=== PATIENT | male | born 1990 | race Caucasian/White ===

== ENCOUNTER 2020-01-29 04:45 | Emergency (ER) | payer OTHER ==
[~2020-01-29] VITALS: Ht 165.1 cm; Wt 90.7 kg
--- NOTE | 2020-01-29 04:45 | NUR ---
BIBA TO ER BED 5
--- NOTE | 2020-01-29 04:50 | NUR ---
Patient being evaluated by physician at bedside.
[2020-01-29 04:55] VITALS: BP 119/68
[2020-01-29] MEDS ORDERED: LORazepam 2 MG/ML VIAL IVP ONE (04:55)
[2020-01-29] MEDS ORDERED: NACL 0.9% 1,000 ML IV ONE ×4 (04:55→10:40)
--- NOTE | 2020-01-29 04:55 | NUR ---
29 Y/O MALE BIBA AFTER SEIZURE. PER EMS PT'S FAMILY CALLED ABOUT PT HAVING 1 MINUTE SEIZURE AT 0400 AT HOME. AFTER SEIZURE PT WAS NOTED TO BE RUNNING AROUND STREET WHEN EMS FOUND HIM. PT ARRIVED AND PRESENTS WITH GARBLED SPEECH, GCS OF 10. PERRL OF 3 MM SLUGLISH BILATERAL. RESPIRATIONS EVEN AND UNLABORED, O2 SAT AT 96% AT RA. PER EMS BS WAS 134 PRIOR TO ARRIVAL. PT PLACED ON SEIZURE PRECAUTIONS, PADDED SIDE RAILS IN PLACE, SIDE RAILS UP X 2. BED LOCKED AND IN LOWEST POSITION. PT ON PEOPLESOFT PROGRAMMER. MEDHX: SEIZURES ALLERGIES: UNABLE TO ANSWER -PER EMS NKA
[2020-01-29] MEDS ORDERED: LORazepam 2 MG/ML VIAL IM ONE (05:05)
--- NOTE | 2020-01-29 05:10 | NUR ---
PT HAD SIEZURE LASTING 30 [address]DS[address] SE[address] IN PLACE. SUCTION SET UP AT BEDSIDE. PT PLACED ON LEFT SIDE. PT ON CARIDAC MONTIOR. O2 RUNNING @ 2L NS. O2SAT@ 98% ERMD MADE AWARE. IV PULLED OUT. ERMD GAVE ORDER FOR STAT ATIVAN 2MG IM.
--- NOTE | 2020-01-29 05:16 | NUR ---
IV PLACED IN R WRIST 20G.
--- NOTE | 2020-01-29 05:17 | NUR ---
PT TAKEN TO CT VIA [facility]. PT REMAINS ON SEIZURE PRECAUTIONS AND GETTING 2L NC. PT ESCORTED TO CT WITH PRIMARY RN AND SPINDLE FRAME CARVER.
--- NOTE | 2020-01-29 05:27 | NUR ---
LABS GIVEN TO [address].
[2020-01-29 05:38] LABS: BASOPHILS % (AUTO) 0.2 % (0.0-2.0); EOSINOPHILS % (AUTO) 0.2 % (0.0-4.0); HEMATOCRIT 43.1 % (36-52); HEMOGLOBIN 14.4 g/dL (12.0-18.0); LYMPHOCYTES # (AUTO) 1.1 K/uL (2.0-11.5); LYMPHOCYTES % (AUTO) 6.3 % (20.5-51.1); MEAN CORPUSCULAR HEMOGLOBIN 28 pg (27-31); MEAN CORPUSCULAR HGB CONC 34 g/dL (33-37); MEAN CORPUSCULAR VOLUME 83.7 fL (80-94); MONOCYTES # (AUTO) 0.9 K/uL (0.8-1.0); MONOCYTES % (AUTO) 4.9 % (1.7-9.3); NEUTROPHILS # (AUTO) 15.8 K/uL (1.8-7.7); NEUTROPHILS % (AUTO) 88.4 % (42.2-75.2); PLATELET COUNT (AUTO) 335 K/uL (140-450); RED BLOOD CELL COUNT(AUTO) 5.15 MIL/uL (4.20-6.10); WHITE BLOOD COUNT (AUTO) 17.9 K/uL (4.8-10.8)
--- NOTE | 2020-01-29 05:45 | NUR ---
UA AND COVID SOPHA SWAB COLLECTED AND SENT TO LAB.
[2020-01-29 05:51] LABS: ALBUMIN 4.4 g/dL (3.4-5.0); ANION GAP 25.1 (8-16); ASPARTATE AMINOTRANSFERASE 31 U/L (15-37); CARBON DIOXIDE 17.3 mmol/L (21-32); CHLORIDE 102 mmol/L (98-107); CREATININE 1.4 mg/dL (0.6-1.3); GFR ARICAN-AMERICAN 78 mL/min (>90); GLUCOSE 137 mg/dL (74-106); POTASSIUM 3.4 mmol/L (3.5-5.1); SODIUM SERUM 141 mmol/L (136-145); TOTAL BILIRUBIN 0.4 mg/dL (0.0-1.0); UREA NITROGEN, BLOOD 15 mg/dL (7-18)
[2020-01-29 05:54] LABS: APPEARANCE,URINE CLEAR (CLEAR); BILIRUBIN,URINE NEGATIVE (NEGATIVE); BLOOD, URINE TRACE-I (NEGATIVE); COLOR,URINE YELLOW (YELLOW); LEUKOCYTE ESTERASE ,URINE NEGATIVE (NEGATIVE); NITRITE, URINE NEGATIVE (NEGATIVE); UGLUCOSE NEGATIVE (NEGATIVE)
--- NOTE | 2020-01-29 06:00 | NUR ---
ER MD MADE AWARE OF BP OF 71/40 AT THIS TIME. VERBALIZED NEW ORDER OF 2ND BOLUS OF 0.9% NS 1L TO BE GIVEN.
[2020-01-29 06:13] LABS: RBC,URINE 0-5 /HPF (0-5); WBC,URINE 0 /HPF (0-5)
[2020-01-29 06:26] LABS: BARBITURATE, URINE NEGATIVE ng/ml (NEG <=200); BENZODIAZEPINE, URINE POSITIVE ng/mL (NEG <=200); CANNABINOID, URINE POSITIVE ng/mL (NEG <=50); COCAINE, URINE NEGATIVE ng/mL (NEG <=300); OPIATE, URINE NEGATIVE ng/mL (NEG <=2000); PHENCYCLIDINE SCREEN,URINE NEGATIVE ng/mL (NEG <=25)
--- NOTE | 2020-01-29 06:32 | NUR ---
BOLUS RUNNING CONTINOUSLY ORDERED. NEW BP AT 119/59. ER MADE AWARE.
[2020-01-29] MEDS ORDERED: levETIRAcetam 1,000 MG in NACL 0.9% 100 ML IV ONE (07:10)
--- NOTE | 2020-01-29 07:13 | NUR ---
RECIEVED HANDOFF REPORT FROM TRAIN RESERVATION CLERK RN FOR CONTINUITY OF CARE.
--- NOTE | 2020-01-29 07:36 | NUR ---
Dr. Moore is evaluating the patient at bedside.
--- NOTE | 2020-01-29 08:37 | NUR ---
RECEIVED CALL FROM PT'S ROOMMATE, SRIRAM MENENDEZ, INQUIRING ABOUT PT'S STATUS. MAY CALL WHEN PT IS READY FOR DISCHARGE. CONTACT NUMBER: [phone]
--- NOTE | 2020-01-29 09:15 | NUR ---
Dr. Moore is reevaluating the patient at bedside.
--- NOTE | 2020-01-29 09:16 | NUR ---
DR. VAUGHAN AT BEDSIDE REEVALUATING PT. DR. VAUGHAN REMOVED NC TO ATTEMPT WEANING PT OFF. WILL CONTINUE TO MONITOR FOR DESATURATION OR SIGNS OF RESPIRATORY DISTRESS.
--- NOTE | 2020-01-29 09:29 | NUR ---
RECEIVED CALL FROM MERI POSADA ([id number]) OF PT. VERIFIED WITH PT'S DATE OF . MERI ASKED FOR UPDATE ON PT AND INFORMATION WAS PROVIDED. CONTACT NUMBER IS [phone].
--- NOTE | 2020-01-29 10:09 | NUR ---
Dr. Moore is reevaluating the patient at bedside.
--- NOTE | 2020-01-29 10:47 | NUR ---
glass technician/installer at bedside.
--- NOTE | 2020-01-29 11:16 | NUR ---
DR. JOY AT BEDSIDE REEVALUATING PT
--- NOTE | 2020-01-29 12:09 | NUR ---
ER ADMITTING ARLIN TAKING CAR KEYS FROM PATIENT'S BELONGINGS AND TAKING IT TO FAMILY IN ER LOBBY. FAMILY STATES THEY HAVE TO MOVE HIS CAR.
--- NOTE | 2020-01-29 12:31 | NUR ---
Dr. Moore is reevaluating the patient at bedside.
--- NOTE | 2020-01-29 12:55 | NUR ---
ATTEMPTED TO REACH BOTH SISTER IN LAW AND ROOMATE IN REGARDS TO HAVING THEM COME IN TO CONFIRM PT'S MENTAL STATUS/ORIENTATION TO DETERMINE NEED FOR MORE WORKUP. NEITHER SISTER IN LAW OR ROOMATE ANSWERED PHONE AT THIS TIME.
--- NOTE | 2020-01-29 13:16 | NUR ---
PT DESATTING TO 89% WHEN BECOMING AGITATED. TURNED NC TO 1 L. PT NOW SATTING 93%. AWARE.
--- NOTE | 2020-01-29 14:52 | NUR ---
Eden sanchez in ED - 01/29/20 at 1454 by RINKU ACCEPTED TO [facility] UNDER DR ALCARAZ. NUMBER FOR REPORT [phone].
[2020-01-29 15:28] LABS: SALICYLATE < 2.8 mg/dL (2.8-20.0)
[2020-01-29 15:29] LABS: ACETAMINOPHEN < 0.5 ug/ml (10-30)
--- NOTE | 2020-01-29 16:00 | NUR ---
PT ON 2 L NC AT THIS TIME, DR WILLIS.
--- NOTE | 2020-01-29 16:15 | NUR ---
Dr. Moore is evaluating the patient at bedside.
--- NOTE | 2020-01-29 17:32 | NUR ---
Patient taken to CT scan via gurney.
--- NOTE | 2020-01-29 17:47 | NUR ---
Patient returned from CT scan.
--- NOTE | 2020-01-29 17:53 | NUR ---
CALLED [facility] SHANNON MAY FOR REPORT ON PT. TO BE TRANSFERRED TO [facility]. ACCEPTING PHYSICIAN IS DR. FINN. CONTACT NUMBER FOR REPORT IS [phone]. ESTIMATED CENTER RECEPTIONIST TIME BY CASSIE BACON IS 1814.
[2020-01-29] MEDS ORDERED: HALOPERIDOL IM 5 MG/ML VIAL IVP ONE (18:40)
--- NOTE | 2020-01-29 18:46 | NUR ---
WAS NOTIFIED THAT [facility] SWITCHED PT TO ROOM 721 AND WOULD NEED TO GIVE REPORT A SECOND TIME AT NUMBER [phone]. ATTEMPTED TO CALL X2 BUT WAS UNABLE TO REACH RN TO GIVE REPORT. [facility] ALS NOW TO COME AT 1930.
--- NOTE | 2020-01-29 19:19 | NUR ---
HANDOFF GIVEN TO RESEARCH CONSULTANT RN FOR CONTINUITY OF CARE
--- NOTE | 2020-01-29 19:20 | NUR ---
report received from braxton Caballero. transfer of care at this time.
--- NOTE | 2020-01-29 19:30 | NUR ---
PT TRYING TO GET OUT OF BED TO USE RR. PT PROVIDED WITH A URINAL AND ASSISTED BACK INTO BED. PAPER SLITTER, PULSE OX, AND 6L NC PLACED BACK ON PT. PT PLACED IN GOWN, AND NON SLIP SOCKS. BED LOCKED AND IN LOWEST POSITION. SIDE RAILS X2 WITH SEIZURE PADS IN PLACE.
--- NOTE | 2020-01-29 20:00 | NUR ---
CALLED TO GIVE REPORT TO SHANNON ROJAS AT [facility]. [phone]
--- NOTE | 2020-01-29 20:45 | NUR ---
EMS ARRIVIED FOR TX SPOT SPRAYER TO [facility].
[2020-01-29 20:56] VITALS: BP 133/81
--- NOTE | 2020-01-29 20:56 | NUR ---
Patient to be transferred to [facility]. Is being transferred due to HIGHER LEVEL OF CARE. Receiving facility has accepting physician and available space. ER physician has signed transfer form. Patient or responsible constitution party has agreed to transfer and signed form. Patient belongings inventoried and will be sent with patient. Copy of nursing notes, lab reports, EKG, Physicians Orders and X-rays to be sent with patient. Report called to SHANNON ROJAS at receiving facility. [facility] ambulance service IN ROUTE for transfer.
== END 2020-01-29 20:56 | disposition short-term general hospital (02) ==
LOC: MED 04:45
DX: G93.40 Encephalopathy, unspecified (principal); R56.9 Unspecified convulsions; Z20.828 Contact with and (suspected) exposure to other viral communicable diseases
CPT/HCPCS: 36415; 70450; 71045; 71275; 80053; 80305; 81001; 84484; 85025; 87426; 93005; 96361; 96365; 96372; 99291; G0480; G0482; J1953; J2060; J7030; Q9967; 96360; 99285